=== PATIENT | female | born 1960 | race African-American/Black ===

== ENCOUNTER → 2017-09-17 | Outpatient (CLI) | payer OTHER | END | disposition home or self-care (01) | LOC: MAMMO 11:03 | PROVIDERS: ATTEND Specialist | DX: Z12.31 Encounter for screening mammogram for malignant neoplasm of breast (principal) | CPT/HCPCS: 77067 ==

== ENCOUNTER 2018-12-08 13:09 | Inpatient (IN) | payer OTHER ==
[~2018-12-08] VITALS: Ht 162.6 cm; Wt 93.9 kg
[2018-12-08] MEDS ORDERED: MORPHINE SULFATE 4 MG/ML CPJ (NOT FOR IM USE) IV STA (14:38)
[2018-12-08] MEDS ORDERED: SODIUM CHLORIDE 0.9% 1,000 ML IV ONE (14:38)
[2018-12-08] MEDS ORDERED: ONDANSETRON HCL 4MG/2ML INJ IV STA (14:38)
[2018-12-08 15:01] LABS: HEMATOCRIT. 38.2 % (36.0-48.0); HEMOGLOBIN. 12.6 g/dL (12.0-16.0); MEAN CORPUSCULAR HEMOGLOBIN 28.2 pg (28.0-32.0); MEAN CORPUSCULAR VOLUME 85.1 fL (81.0-99.0); MEAN PLATELET VOLUME 9.4 fl (7.4-10.4); PLATELET 211 x1000/uL (130-400); RED BLOOD CELL COUNT 4.48 mill/uL (4.2-5.4); RED CELL DISTRIBUTION WIDTH 14.8 % (11.6-14.6)
[2018-12-08 15:03] LABS: CHLORIDE 105 mEq/L (98-107)
[2018-12-08 15:05] LABS: INR 1.1; PARTIAL THROMBOPLASTIN TIME 30.8 sec (23.4-31.0); PROTHROMBIN TIME 11.7 sec (9.6-11.0)
[2018-12-08 15:27] LABS: PLATELET ESTIMATE NORMAL
[2018-12-08] MEDS ORDERED: SODIUM CHLORIDE 0.9% 1000ML BAG (SEPSIS BOLUS) IV ONE (16:30)
[2018-12-08] MEDS ORDERED: CEFTRIAXONE 1 G PREMIX 50 ML IV ONE (16:45)
[2018-12-08 17:18] LABS: CLARITY URINE TURBID (CLEAR); COLOR URINE DARK YELLOW (YELLOW); KETONES URINE TRACE (NEGATIVE); LEUKOCYTE ESTERASE URINE 3+ (NEGATIVE); NITRITE URINE POSITIVE (NEGATIVE); OCCULT BLOOD URINE 3+ (NEGATIVE); PH URINE 6.5 (4.5-8.0); PROTEIN URINE 3+ (NEGATIVE); SPECIFIC GRAVITY URINE 1.029 (1.005-1.030)
[2018-12-08] MEDS ORDERED: IOHEXOL-350 100 ML BOTTLE ONE (17:31)
[2018-12-08] MEDS ORDERED: CLONIDINE 0.1MG TABLET PO PRN (19:00)
[2018-12-08] MEDS ORDERED: DOCUSATE SODIUM 100MG CAPSULE PO PRN (19:00)
[2018-12-08] MEDS ORDERED: MAGNESIUM/ALUMINUM HYDROXIDE/SIMETHICONE 30ML UDC PO PRN (19:00)
[2018-12-08] MEDS ORDERED: IPRATROPIUM/ALBUTEROL 0.5-3(2.5)MG/3ML NEB INH PRN (19:00)
[2018-12-08] MEDS ORDERED: ACETAMINOPHEN 325MG TABLET PO PRN (19:00)
[2018-12-08] MEDS ORDERED: ONDANSETRON HCL 4MG/2ML INJ IV PRN (19:00)
[2018-12-08] MEDS ORDERED: CEFTRIAXONE 1 G PREMIX 50 ML IV SCH (19:00)
[2018-12-08 23:45] VITALS: BP 129/69
[2018-12-09] MEDS ORDERED: ENOXAPARIN 40MG/0.4ML SYR SUBCUT SCH
[2018-12-09] MEDS: SODIUM CHLORIDE 0.9% 1,000 ML IV SCH ×2 (00:38→12:40)
[2018-12-09] MEDS ORDERED: OMEP40CA34 PO (02:02)
[2018-12-09] MEDS ORDERED: HYDR12.54 PO (02:21)
[2018-12-09 04:00] VITALS: BP 131/70
[2018-12-09] MEDS: HYDROCODONE/ACETAMINOPHEN 5/325MG TABLET PO PRN ×2 (06:00→15:04)
[2018-12-09] MEDS ORDERED: ERGO2000 PO (06:12)
[2018-12-09] MEDS ORDERED: AMLO5TAB88 PO (06:12)
[2018-12-09] MEDS ORDERED: LIP40 PO (06:12)
[2018-12-09] MEDS ORDERED: NITR-87 PO (06:12)
[2018-12-09 07:07] LABS: HEMATOCRIT. 33.6 % (36.0-48.0); HEMOGLOBIN. 11.3 g/dL (12.0-16.0); MEAN CORPUSCULAR HEMOGLOBIN 28.7 pg (28.0-32.0); MEAN PLATELET VOLUME 9.6 fl (7.4-10.4); PLATELET 206 x1000/uL (130-400); RED BLOOD CELL COUNT 3.95 mill/uL (4.2-5.4)
[2018-12-09 07:12] LABS: CHLORIDE 106 mEq/L (98-107)
[2018-12-09 07:30] LABS: PHOSPHORUS 2.4 mg/dL (2.5-4.9)
[2018-12-09 07:32] LABS: HDL CHOLESTEROL 14 mg/dL (40-59); LDL CHOLESTEROL 35 mg/dL (5-100)
[2018-12-09] MEDS ORDERED: OMEPRAZOLE 20MG CAPSULE EXTENDED RELEASE PO SCH (07:40)
[2018-12-09 08:00] VITALS: BP 118/74
[2018-12-09] MEDS ORDERED: POTASSIUM CHLORIDE 20MEQ TABLET SR PO NR (11:15)
[2018-12-09] MEDS ORDERED: AMLODIPINE 5MG TABLET PO SCH (11:15)
[2018-12-09 12:00] VITALS: BP 130/76
[2018-12-09 12:39] LABS: PLATELET ESTIMATE NORMAL
[2018-12-09] MEDS ORDERED: ASPIRIN 81MG TABLET PO SCH (13:15)
[2018-12-09] MEDS ORDERED: METOPROLOL TARTRATE 25MG TABLET PO SCH (13:15)
[2018-12-09 14:19] VITALS: BP 130/76
[2018-12-09 16:00] VITALS: BP 144/76
[2018-12-09] MEDS ORDERED: CEFTRIAXONE 1 G PREMIX 50 ML IV SCH (18:00)
[2018-12-09] MEDS ORDERED: ATORVASTATIN CALCIUM 40MG TABLET PO SCH (21:00)
== END 2018-12-09 16:00 | disposition home or self-care (01) | DRG 690 ==
LOC: ER 16:02 → ENRESERV 21:30 → 7WST 23:26
PROVIDERS: ADMIT Family Medicine Adult Medicine; ATTEND Family Medicine Adult Medicine
DX: N10 Acute pyelonephritis (principal); I47.1 Supraventricular tachycardia; R07.89 Other chest pain; N20.0 Calculus of kidney; E78.00 Pure hypercholesterolemia, unspecified; E78.5 Hyperlipidemia, unspecified; E87.6 Hypokalemia; F17.210 Nicotine dependence, cigarettes, uncomplicated; I10 Essential (primary) hypertension; I25.10 Atherosclerotic heart disease of native coronary artery without angina pectoris; J44.9 Chronic obstructive pulmonary disease, unspecified; K21.9 Gastro-esophageal reflux disease without esophagitis; Z82.49 Family history of ischemic heart disease and other diseases of the circulatory system
CPT/HCPCS: 36415; 71045; 71275; 74174; 76770; 80048; 80061; 83605; 83735; 83880; 84100; 84443; 84484; 87077; 87186; 93005; 93306; 93970; 96374; 96375; 99285; J0696; J1650; J2270; J2405; J7030; Q9967